=== PATIENT | female | born 1975 ===

== ENCOUNTER 2021-05-22 14:35 | Inpatient (IN) | payer MEDICARE, OTHER ==
[~2021-05-22] VITALS: Ht 134.6 cm; Wt 42.8 kg
[2021-05-22] MEDS ORDERED: Remicade100 MG IV (15:15)
--- NOTE | 2021-05-22 15:21 | NUR ---
REFUSED SKIN ASSESSMENT. REFUSED VISUAL INSPECTION OF CHEST PORT. THIS RN ASKED PATIENT TO PULL SHIRT DOWN ENOUGH FOR VISUAL INSPECTION OF CHEST PORT AND PATIENT STATED "NO". ALERT/ORIENTED X4 WITH AT BEDSIDE.
[2021-05-22] MEDS ORDERED: HYDMOR2 PO (17:28)
[2021-05-22 19:14] LABS: BASOPHILS ABSOLUTE AUTO 0.03 K/mm3 (0.00-0.23); BASOPHILS PERCENT AUTO 1 % (0-2); EOSINOPHILS ABSOLUTE AUTO 0.17 K/mm3 (0.00-0.68); EOSINOPHILS PERCENT AUTO 3 % (0-6); Hematocrit 28.4 % (33.0-51.0); Hemoglobin 7.5 g/dL (11.5-16.0); IMMATURE GRAN ABSOLUTE AUTO 0.02 K/mm3 (0.00-0.10); IMMATURE GRAN PERCENT AUTO 0 % (0-1); LYMPHOCYTES ABSOLUTE AUTO 0.62 K/mm3 (0.84-5.20); LYMPHOCYTES PERCENT AUTO 10 % (21-46); MONOCYTES ABSOLUTE AUTO 0.48 K/mm3 (0.16-1.47); MONOCYTES PERCENT AUTO 8 % (4-13); Mean Corpuscular HGB 17.9 pg (26.0-34.0); Mean Corpuscular HGB Conc 26.4 g/dL (31.5-36.5); Mean Corpuscular Volume 68 fL (80-100); Mean Platelet Volume 10.3 fL (9.1-12.4); NEUTROPHILS ABSOLUTE AUTO 4.95 K/mm3 (1.96-9.15); NEUTROPHILS PERCENT AUTO 79 % (41-73); Platelet Count 286 K/mm3 (150-400); RDW Standard Deviation 46.2 fL (35.1-46.3); Red Blood Cell Count 4.18 M/mm3 (3.80-5.20); White Blood Cell Count 6.27 K/mm3 (4.00-11.30)
[2021-05-22 19:31] LABS: Albumin, Blood 2.4 g/dL (3.4-5.0); Anion Gap 4 mmol/L (6-16); Blood Urea Nitrogen 16 mg/dL (8-24); CO2, Blood 25 mmol/L (21-32); Calcium, Blood 7.8 mg/dL (8.5-10.1); Chloride, Blood 110 mmol/L (98-108); Creatinine, Blood 0.43 mg/dL (0.40-1.00); Glomerular Filtration Rate >60 (60-); Glucose, Blood 93 mg/dL (70-99); Phosphorus, Blood 2.9 mg/dL (2.5-4.9); Potassium, Blood 3.7 mmol/L (3.5-5.5); Sodium, Blood 139 mmol/L (136-145)
--- NOTE | 2021-05-22 20:47 | NUR ---
NOTIFIED BY CORPORATE CLAIMS EXAMINER THAT PT AND SIGNIFICANT OTHER AT BEDSIDE BOTH REFUSED LAB DRAW THIS EVENING. LAB WAS FOR H & H, ORDERED Q 6 HRS X 4. PT'S H & H JUST CHECKED AT 1853. NEXT DRAW AT 0200.
[2021-05-23 01:56] LABS: BASOPHILS ABSOLUTE AUTO 0.03 K/mm3 (0.00-0.23); BASOPHILS PERCENT AUTO 1 % (0-2); EOSINOPHILS ABSOLUTE AUTO 0.38 K/mm3 (0.00-0.68); EOSINOPHILS PERCENT AUTO 7 % (0-6); Hemoglobin 7.7 g/dL (11.5-16.0); IMMATURE GRAN ABSOLUTE AUTO 0.03 K/mm3 (0.00-0.10); IMMATURE GRAN PERCENT AUTO 1 % (0-1); LYMPHOCYTES PERCENT AUTO 19 % (21-46); MONOCYTES ABSOLUTE AUTO 0.83 K/mm3 (0.16-1.47); MONOCYTES PERCENT AUTO 15 % (4-13); Mean Corpuscular HGB Conc 26.6 g/dL (31.5-36.5); Mean Corpuscular Volume 68 fL (80-100); Mean Platelet Volume 11.3 fL (9.1-12.4); NEUTROPHILS ABSOLUTE AUTO 3.36 K/mm3 (1.96-9.15); NEUTROPHILS PERCENT AUTO 59 % (41-73); Platelet Count 230 K/mm3 (150-400); RDW Coefficient Variation 19.2 % (11.7-14.2); RDW Standard Deviation 46.4 fL (35.1-46.3); Red Blood Cell Count 4.28 M/mm3 (3.80-5.20); White Blood Cell Count 5.73 K/mm3 (4.00-11.30)
[2021-05-23 02:09] LABS: Albumin, Blood 2.4 g/dL (3.4-5.0); Anion Gap 4 mmol/L (6-16); Blood Urea Nitrogen 13 mg/dL (8-24); Bun/Creatinine Ratio 26.6 (12.0-20.0); CO2, Blood 26 mmol/L (21-32); Chloride, Blood 110 mmol/L (98-108); Creatinine, Blood 0.49 mg/dL (0.40-1.00); Glomerular Filtration Rate >60 (60-); Glucose, Blood 88 mg/dL (70-99); Potassium, Blood 3.7 mmol/L (3.5-5.5); Sodium, Blood 140 mmol/L (136-145)
--- NOTE | 2021-05-23 05:55 | NUR ---
PATIENT ALERT AND ORIENTED X3. PATIENT COMPLAINED OF PAIN TO HER LEFT LOWER ABDOMEN, PATIENT WAS GIVEN DILAUDID IV X2 WITH GOOD EFFECT. PATIENT COMPLAINED OF NAUSEA AND WAS GIVEN COMPAZINE IV THIS AM WITH GOOD EFFECT. PATIENT REMAINS NPO. LAB CALLED WITH CRITICAL LAB, GRAM POSITIVE COCCI IN CLOSTERED. PHARMACY WAS CALLED AND RESPONDED THAT PATIENT IS COVERED SINCE PATIENT IS ALREADY ON VANCOMYCINE. PATIENT'S SPENT THE NIGHT WITH PATIENT IN HER ROOM. WILL CONTINUE TO MONITOR.
--- NOTE | 2021-05-23 08:21 | NUR ---
THIS NURSE IN ROOM TO ADMINISTER PAIN MEDICATION PER PATIENT REQUEST AND PER EMAR AT 0756 ON 05/23/31. PATIENT ANSWERED PAIN RATING AND STATED THAT PAIN WAS "IN SAME PLACE YESTERDAY." THIS SHIFT IS THE FIRST TIME WITH THIS PATIENT AND NOTICED PT HAND ON L. ABDOMEN. THIS NURSE ASKED IF PAIN WAS IN L. ABDOMEN AND PATIENT NODDED HEAD. PT REFUSED TO ANSWER PAIN GOAL LEVEL. PT ALSO REFUSED MOST OF MORNING SHIFT ASSESSMENT. UPON PAIN REASSESSMENT PT ARGUED THAT IT WAS NOT TIME FOR PAIN REASSESSMENT. THIS NURSE ATTEMPTED TO EDUCATE PATIENT ABOUT ONSET OF ACTION OF PAIN MEDICATION VIA IV ROUTE AND EMAR REASSESSMENT TIMING. PT CONTINUED TO REFUSE TO ANSWER UNTIL MALE IN THE ROOM URGED HER TO "ANSWER THE QUESTION." PT STATES THAT THE MEDICATION HAS "HELPED SOME" BUT THE RATING IS "STILL THE SAME." MALE VISITOR IN THE ROOM WROTE TIME OF MEDICATION ADMINISTRATION ON WHITE BOARD ON THE ROOM. WHEN THIS NURSE ASKED PATIENT AND MALE VISITOR IF THEY WERE AWARE OF VISITOR POLICY. MALE VISITOR STATES THAT HE IS A "[employer]."
[2021-05-23 13:26] LABS: Hematocrit 29.2 % (33.0-51.0); Hemoglobin 7.6 g/dL (11.5-16.0)
--- NOTE | 2021-05-23 18:00 | NUR ---
SHIFT SUMMARY PT AXO, PLEASANT AND COOPERATIVE WITH CARE AFTER SPOUSE LEFT AND WENT HOME. PT AFFECT BECAME COMPLETELY COOPERATIVE AND PLEASANT ALMOST INSTANTLY AFTER HE LEFT. VSS. PT MEDICATED FOR PAIN AND NAUSEA PER EMAR. SEE DR DELGADO NOTE FOR REMOVAL OF INDWELLING GROSHONG CATHETER AT BEDSIDE THIS SHIFT. PT REFUSED MORNING LABS BUT AGREED TO LAB DRAW THIS AFTERNOON. PT REMAINS NPO. UP AD ENOCH WITH STEADY GAIT. BED IN LOW POSITION, CALL LIGHT WITHIN REACH.
--- NOTE | 2021-05-24 05:53 | NUR ---
PATIENT IS ALERT AND ORIENTED X4. PATIENT WAS MEDICATED WITH DILAUDID FOR LEFT LOWER ABDOMINAL PAIN EVERY 4 HOURS THIS SHIFT PER PATIENT'S REQUEST. PATIENT CONTINUES ON NPO STATUS. PATIENT WAS CONCERNED ABOUT ABOUT WHEN HER TPN WILL BE STARTED, PATIENT WAS TOLD IT WILL BE ADDRESS TO THE DOCTOR TODAY. PATIENT WAS MEDICATED WITH COMPAZINE X1 FOR NAUSEA PER PATIENT'S REQUEST. WILL CONTINUE TO MONITOR.
[2021-05-24 07:52] LABS: Vancomycin, Trough 3.1 ug/mL (5.0-10.0)
--- NOTE | 2021-05-24 18:22 | NUR ---
SHIFT SUMMARY PT AWAKE AT START OF SHIFT, RESTING QUIETLY IN BED. IVF'S INFUSING. PT WAS NPO, BUT LATER REQUESTING TO ADVANCE DIET. LAB HERE AGAIN TO OBTAIN VANCO TROUGH. PT CONSISTANTLY REFUSING LABS AND TX'S THAT SHE DOES NOT WANT. PT CALLS CONSISTANTLY FOR IV DILAUDID, BUT REFUSES CARE NEEDED. DR RICO AND DR Aquino BOTH IN TO SEE PT THIS AM. PT INFORMED THAT ANOTHER SET OF BCX'S NEEDED TO BE OBTAINED. PT WAS AGREEABLE WHILE DR RICO IN RM, BUT THEN REFUSED LAB WHEN THEY CAME FOR BLOOD DRAW. PT WILL ONLY ALLOW THEM TO USE A VEIN OF HER CHOOSING AND ON THE HAND, MAKING IT DIFFICULT TO OBTAIN LAB DRAWS NEEDED. PT TOLD LAB TO RETURN TONIGHT WITH VEIN FINDER. LAB REPORTED TONIGHT THAT THEY DO NOT USE THE VEIN FINDER, THE NURSE DOES. PT IS BEING VERY DIFFICULT TO CARE FOR. PT HAS BEEN INDEPENDENT IN HER RM AND TO BSC AND SINK NEEDED; REFUSING TO HAVE STAFF IN RM WHEN SHE GETS UP TO BSC. WANTING TO SPEND THE NIGHT, REPORTING THAT PT NEEDS 24 HR CARE AND ASSIST WITH EVERYTHING, WHICH IS NOT THE CASE. PT IS INDEPENDENT WELL ORIENTED AND CAN CALL FOR ASSIST IF NEEDED. PT HAS DECLINED ASSIST MULTIPLE TIMES JUST TODAY. COMMISSARY SUPERINTENDENT IN THIS AM TO TALK WITH PT ABOUT NUTRITION. ORDERS CHANGED. CLINIMIX INFUSING AT THIS TIME. PT ABLE TO TOLERATE BROTH, JELLO, AND MASHED POTATOES TODAY. AWAKE, WATCHING TV AT THIS TIME. CALL LT IN REACH.
--- NOTE | 2021-05-25 05:41 | NUR ---
PATIENT IS ALERT AND ORIENTED X4. PATIENT DENIES SHORTNESS OF BREATH. PATIENT COMPLAINED OF PAIN AND RECEIVED DILAUDID EVERY FOUR HOURS PRN. PATIENT CONTINUE ON CLINIMIX. PATIENT REFUSED HER LAB DRAW THIS MORNING.
[2021-05-25 10:35] LABS: Magnesium, Blood 2.2 mg/dL (1.6-2.4); Phosphorus, Blood 4.7 mg/dL (2.5-4.9); Triglycerides 86 mg/dL (30-160)
[2021-05-25 10:59] LABS: Anion Gap 8 mmol/L (6-16); Blood Urea Nitrogen 14 mg/dL (8-24); Bun/Creatinine Ratio 29.7 (12.0-20.0); CO2, Blood 25 mmol/L (21-32); Calcium, Blood 8.6 mg/dL (8.5-10.1); Chloride, Blood 105 mmol/L (98-108); Creatinine, Blood 0.47 mg/dL (0.40-1.00); Glomerular Filtration Rate >60 (60-); Glucose, Blood 123 mg/dL (70-99); Potassium, Blood 3.9 mmol/L (3.5-5.5); Sodium, Blood 138 mmol/L (136-145)
--- NOTE | 2021-05-25 18:56 | NUR ---
SHIFT SUMMARY PT REFUSING LABS AGAIN THIS AM. PT REFUSED LABS UNTIL SHE COULD GET DILAUDID PAIN MEDICATION. PT SOON COMPLAINED ABOUT IV SITE BECOMING TENDER AND THEN PULLED RAC IV SITE. PT REFUSED FURTHER IV ACCESS ALL DAY. PT'S VERY AGGRESSIVE ALL DAY ON THE PHONE, MAKING CONSTANT DEMANDS THAT WERE NOT ONLY IMPOSSIBLE BUT NOT EVEN REASONABLE. PT CALLING FREQUENTLY FOR PAIN MEDICATION AND WANTING MORE THAN HER PHARMACY ACTUALLY ALLOWS. PO DILAUDID INCREASED PER PT REQUEST. PT CALLING FOR PAIN MEDICATION, BUT LAUGHING AND JOKING WITH PRIOR AND DURING ADMINISTRATION. PT UP INDEPENDENTLY TO BTHRM AND AROUND RM AGAIN ALL DAY. PT FINALLY AGREED TO ALLOW IV ACCESS ATTEMPT ONE MORE TIME. SAULO RN WAS ABLE TO OBTAIN ACCESS WITH U/S, SO PT WILL BE ABLE TO HAVE IV ABX TONIGHT. RESTING QUIETLY WATCHING TV. CALL LT IN REACH.
--- NOTE | 2021-05-25 22:10 | NUR ---
PT REPORTED BURNING AT IV SITE WHEN IV VANCOMYCIN STARTED. ATTEMPTED TO FLUSH IV BUT COULD NOT. PT REPORTED TENDERNESS IN THE AREA. HAD TO STOP VANCO. PT REFUSING ATTEMPT TO START NEW IV. DR CORNEJO NOTIFIED, NO ALTERNATE ABX ABLE TO BE GIVEN PO.
--- NOTE | 2021-05-26 05:11 | NUR ---
PATIENT CALLED AND REQUESTED THE IV LINE INSERTION SO SHE CAN GET HER IV MEDICINES. REED ALFRED, WAS CALLED AND SHE USED THE ULTRASOUND TO GET A NEW LINE ON THE L UPPER ARM. PATIENT'S MEDICATIONS WERE RESTARTED. PATIENT CALLED TO REPORT SWELLING IN THE R ARM. THE IV ACCESS WAS REMOVED. PATIENT WAS ASSISTED TO ELEVANT HAND ON THE PILLOW. PATIENT THIS MORNING REFUSED MORNING LAB DRAW AND MORNING VITAL SIGNS. PATIENT COMPLAINED OF PAIN TO HER RIGHT ABDOMEN, PATIENT WAS MEDICATED WITH PO DILAUDID. WILL CONTINUE TO MONITOR.
--- NOTE | 2021-05-26 16:55 | NUR ---
SHIFT SUMMARY: PATIENT VERY WITHDRAWN THROUGHOUT THIS SHIFT. CONTINUES TO REFUSE LAB DRAWS AND IV START TO RECEIVE MEDICATIONS. PLAN IS FOR PLACEMENT OF CENTRAL LINE TOMORROW IN ORDER TO RESUME TPN. DILAUDID GIVEN X1 TODAY TO TREAT ABDOMINAL PAIN.
[2021-05-26 19:15] LABS: SARS-Cov-2 (COVID-19) PCR, MMC NEGATIVE (NEGATIVE)
--- NOTE | 2021-05-27 05:57 | NUR ---
PATIENT ALERT AND ORIENTED X3. PATIENT REQUESTED DILAUDID TWO TIMES DUE TO ABDOMINAL PAIN. PATIENT APPEARED TO BE CALM, QUIET AND WITHRAWN. WILL CONTINUE TO MONITOR.
--- NOTE | 2021-05-27 11:30 | NUR ---
PT REFUSING IV START FOR PROCEDURE, NOTIFIED. REQUIRES IV IN ORDER FOR PROCEDURE TO PROCEDE. PT THEN CONSENTED TO HAVING AN IV PLACED. PT REFUSED TO REMOVE PANTS AND JEWELRY (ONE RING ON RIGHT HAND, ONE RING ON LEFT HAND). PT ALSO REFUSED TO REMOVE HER PERSONAL SOCKS. PT SIGNED JEWELRY REFUSAL CONSENT. OR STAFF AND NOTIFIED OF ALL.
--- NOTE | 2021-05-27 14:00 | NUR ---
PATIENT ARRIVED BACK FROM PACU. REPORT RECEIVED FROM TANYA ROSENTHAL. GURWINDER KELLEY TO USE PER REPORT. PATIENT WANTING TO EAT, DIET WILL BE ADAVANCED TOLERATED.
[2021-05-27 15:39] LABS: Magnesium, Blood 2.1 mg/dL (1.6-2.4)
--- NOTE | 2021-05-27 16:56 | NUR ---
PATIENT REFUSING MOST CARE, ASSESSMENTS, LAB DRAWS AND VITALS AT TIMES. REFUSING TO RESTART ANTIBIOTICS. PURDY CATH PLACED TODAY, DRAWS AND FLUSHES WELL. ABLE TO SEND LABS. AGREEABLE TO RESTART TPN THIS EVENING. MEDICATED X2 WITH DILAUDID FOR LLQ ABDOMINAL PAIN, CHRONIC DIARRHEA. PATIENT WILL FREQUENTLY IGNORE STAFF AND REFUSE TO ANSWER QUESTIONS. INDEPENDENT IN THE ROOM.
--- NOTE | 2021-05-28 04:03 | NUR ---
PT REFUSING ALL CARE AND ASSESSMENT EXCEPT FOR PRN PAIN MEDICATION FOR ABDOMINAL PAIN AND SORE THROAT THIS AM.
--- NOTE | 2021-05-28 05:36 | NUR ---
[employer] HELPER SUMMARY ADMITTED FOR BACTEREMIA DUE TO INFECTED CENTRAL LINE. PT IS FULL CODE. PT REFUSED CARE THIS SHIFT EXCEPT FOR ORAL PAIN MEDICATION AND ONE BLOOD PRESSURE. PT COMPLAINED OF SORE THROAT FROM INTUBATION YESTERDAY AND WAS REQUESTING THROAT LAZINGES BUT IS ALLERGIC TO MENTH[place] - PT AGREES TO TRY HOT TEA TO CALM HER THROAT. NO OTHER CONCERNS THIS SHIFT.
[2021-05-28 09:54] LABS: BASOPHILS ABSOLUTE AUTO 0.08 K/mm3 (0.00-0.23); BASOPHILS PERCENT AUTO 1 % (0-2); EOSINOPHILS ABSOLUTE AUTO 0.22 K/mm3 (0.00-0.68); EOSINOPHILS PERCENT AUTO 2 % (0-6); Hemoglobin 7.8 g/dL (11.5-16.0); IMMATURE GRAN ABSOLUTE AUTO 0.03 K/mm3 (0.00-0.10); IMMATURE GRAN PERCENT AUTO 0 % (0-1); LYMPHOCYTES ABSOLUTE AUTO 1.27 K/mm3 (0.84-5.20); LYMPHOCYTES PERCENT AUTO 14 % (21-46); MONOCYTES ABSOLUTE AUTO 0.95 K/mm3 (0.16-1.47); MONOCYTES PERCENT AUTO 11 % (4-13); Mean Corpuscular HGB 17.7 pg (26.0-34.0); Mean Corpuscular Volume 68 fL (80-100); Mean Platelet Volume 10.4 fL (9.1-12.4); NEUTROPHILS ABSOLUTE AUTO 6.44 K/mm3 (1.96-9.15); NEUTROPHILS PERCENT AUTO 72 % (41-73); Platelet Count 408 K/mm3 (150-400); RDW Coefficient Variation 19.5 % (11.7-14.2); RDW Standard Deviation 46.9 fL (35.1-46.3); White Blood Cell Count 8.99 K/mm3 (4.00-11.30)
[2021-05-28 10:14] LABS: Alanine Aminotransfer (ALT/SGP 32 U/L (12-78); Albumin, Blood 2.9 g/dL (3.4-5.0); Albumin/Globulin Ratio 0.7 (0.8-1.8); Alk Phos 126 U/L (50-136); Anion Gap 5 mmol/L (6-16); Aspartate Aminotrans (AST/SGOT 17 U/L (12-37); Bilirubin, Total 0.5 mg/dL (0.1-1.0); Blood Urea Nitrogen 16 mg/dL (8-24); Bun/Creatinine Ratio 29.7 (12.0-20.0); CO2, Blood 28 mmol/L (21-32); Calcium, Blood 8.6 mg/dL (8.5-10.1); Chloride, Blood 105 mmol/L (98-108); Creatinine, Blood 0.54 mg/dL (0.40-1.00); Globulin, Blood 4.3 g/dL (2.2-4.0); Glomerular Filtration Rate >60 (60-); Glucose, Blood 129 mg/dL (70-99); Magnesium, Blood 2.3 mg/dL (1.6-2.4); Phosphorus, Blood 3.1 mg/dL (2.5-4.9); Potassium, Blood 3.8 mmol/L (3.5-5.5); Sodium, Blood 138 mmol/L (136-145); Total Protein, Blood 7.2 g/dL (6.4-8.2)
--- NOTE | 2021-05-28 10:26 | NUR ---
SHIFT ASSESSMENT PT REFUSED SHIFT ASSESMENT AND VITALS THIS MORNING. WHEN ASKED ABOUT MORNING MEDICATIONS SHE STATES "THEY ALREADY GAVE ME WHAT I NEED, GO AWAY AND GET OUT!" SHE THEN REFUSED TO RESPOND TO NURSE OR MANAGER DECISION SUPPORT QUESTIONS AND IGNORED US.
--- NOTE | 2021-05-28 16:07 | NUR ---
DISCHARGE PT WAS DISCHARGED HOME WITH @ 8242 , TEACHING GONE THROUGH, TPN NOTE PLACED IN DISCHARGE ORDERS FOR PHARMACY.
== END 2021-05-28 15:51 | disposition home or self-care (01) | DRG 315 ==
LOC: MEDS 14:35
PROVIDERS: Family Medicine; Pharmacist; Student in an Organized Health Care Education/Training Program; Surgery; ADMIT Internal Medicine
PROC: 02PYX3Z Removal of Infusion Device from Great Vessel, External Approach (ICD-10-PCS; principal; 2021-05-23)
PROC: 0JH63XZ Insertion of Tunneled Vascular Access Device into Chest Subcutaneous Tissue and Fascia, Percutaneous Approach (ICD-10-PCS; 2021-05-27)
PROC: 02H633Z Insertion of Infusion Device into Right Atrium, Percutaneous Approach (ICD-10-PCS; 2021-05-27)
DX: T80.211A Bloodstream infection due to central venous catheter, initial encounter (principal); K50.90 Crohn's disease, unspecified, without complications; K59.00 Constipation, unspecified; G89.29 Other chronic pain; J47.9 Bronchiectasis, uncomplicated; F41.9 Anxiety disorder, unspecified; Z93.2 Ileostomy status; Z90.49 Acquired absence of other specified parts of digestive tract; Z98.1 Arthrodesis status; Z98.890 Other specified postprocedural states; Z79.899 Other long term (current) drug therapy; Z88.0 Allergy status to penicillin; B95.61 Methicillin susceptible Staphylococcus aureus infection as the cause of diseases classified elsewhere; Y83.8 Other surgical procedures as the cause of abnormal reaction of the patient, or of later complication, without mention of misadventure at the time of the procedure
CPT/HCPCS: 36415; 71045; 74176; 77001; 80048; 80053; 80069; 80202; 82947; 83735; 84100; 84478; 85014; 85018; 85025; 87040; A9270; C1751; J0780; J1100; J1170; J1642; J1885; J2250; J2405; J2704; J3010; J3370; J7120; U0004